=== PATIENT | male | born 1965 | race Caucasian/White ===

== ENCOUNTER 2023-09-23 16:27 | Emergency (ER) | payer BC ==
[~2023-09-23 16:27] MED LIST: Iopamidol 370 76% 100 ML VIAL ONE
[2023-09-23 17:48] LABS: ALT (SGPT) 27 U/L (8-55); AST (SGOT) 25 U/L (5-34); Albumin 3.7 g/dL (3.5-5.0); Alkaline Phosphatase 64 U/L (40-110); Anion Gap 16 mmol/L (10-20); BUN (Urea Nitrogen) 12 mg/dL (8.4-25.7); Bilirubin, Total 0.3 mg/dL (0.2-1.2); Calc. Creatinine Clearance 0 mL/min (70-130); Calcium 9.3 mg/dL (7.8-10.44); Carbon Dioxide 24 mmol/L (22-29); Chloride 104 mmol/L (98-107); Estimated GFR 70; Globulin 3.4 g/dL (2.4-3.5); Glucose 74 mg/dL (70-105); Potassium 4.2 mmol/L (3.5-5.1); Protein, Total 7.1 g/dL (6.0-8.3); Sodium 140 mmol/L (136-145)
[2023-09-23 17:54] LABS: #Basophils 0.07 10x3/uL (0.0-0.2); #Eosinphils 0.64 10x3/uL (0.0-0.5); #Monocytes 0.69 10x3/uL (0.0-1.1); #Neutrophils 5.49 10x3/uL (1.5-8.4); %Basophils 0.7 % (0.0-2.0); %Eosinophils 6.8 % (0.0-6.0); %Lymphocytes 22.9 % (18.0-47.0); %Monocytes 7.3 % (0.0-10.0); %Neutrophils 58.5 % (40.0-75.0); Hematocrit 40.9 % (38.8-50.0); Hemoglobin 13.8 g/dL (13.5-17.5); Mean Corpuscular HGB CONC 33.7 g/dL (32.0-36.0); Mean Corpuscular Hemoglobin 29.1 pg (27.0-33.0); Mean Corpuscular Volume 86.3 fl (81.2-95.1); Mean Platelet Volume 9.6 fl (7.4-10.4); Platelet Count 263 10x3/uL (150-450); RBC Distribution Width 13.2 % (11.5-14.5); Red Blood Cell (RBC) Count 4.74 10x6/uL (4.32-5.72); Troponin I Less than 0.010 ng/mL (< 0.028); White Blood Cell (WBC) Count 9.4 10x3/uL (3.5-10.5)
[2023-09-23 18:12] LABS: Large Platelets SLIGHT (None Seen); Ovalocytes MODERATE= 6-15 cells (100X) (0-1/hpf); Platelet Adequacy Comment Appears Adequate
[2023-09-23 18:13] LABS: D-Dimer Test 3.76 mcg/mL (0.19-0.50); INR-International Normal Ratio 1.1; PTT 28.5 sec (22.0-33.0); Prothrombin Time 11.9 sec (9.5-12.1)
[2023-09-23] MEDS ORDERED: hydrALAZINE 20 MG/ML VIAL ONE (20:00)
[2023-09-23] MEDS ORDERED: Heparin 25,000 units/D5W 0 ML ONE (20:05)
[2023-09-23] MEDS ORDERED: ALTEPLASE 50 MG/50 ML VIAL ONE (20:10)
[2023-09-23] MEDS ORDERED: Morphine 4 MG/ML VIAL ONE (20:28)
[2023-09-23] MEDS ORDERED: ALTEPLASE IVPB SCH (20:30)
[2023-09-23] MEDS ORDERED: niCARdipine 25 MG/10 ML SDV ONE (20:53)
[2023-09-23] MEDS ORDERED: NOREPINEPHRINE 8 MG/250 ML-D5W 250 ML ONE (22:50)
== END 2023-09-24 00:03 | disposition short-term general hospital (02) ==
LOC: CSHERS 16:27
DX: I82.432 Acute embolism and thrombosis of left popliteal vein (principal); I26.99 Other pulmonary embolism without acute cor pulmonale; R06.02 Shortness of breath; I10 Essential (primary) hypertension; Z55.6 Problems related to health literacy
CPT/HCPCS: 71275; 74174; 80053; 84484; 85025; 85379; 85610; 85730; 93005; 93306; 96365; 96366; 96374; 96375; J0360; J1644; J2270; J2997; Q9967